=== PATIENT | male | born 1990 | race African-American/Black ===

== ENCOUNTER 2023-01-26 05:57 | Emergency (ER) | payer MEDICAID ==
[~2023-01-26] VITALS: Ht 175.3 cm; Wt 69.0 kg
[~2023-01-26 05:57] MED LIST: BO1 TP; TOPUD PO
[2023-01-26 06:01] VITALS: BP 124/86; PULSE 76; RESP 18; TEMP 98.4; O2SAT 100
== END 2023-01-26 08:15 | disposition left against medical advice (07) ==
LOC: ER 06:02
DX: Z53.21 Procedure and treatment not carried out due to patient leaving prior to being seen by health care provider (principal)

== ENCOUNTER 2023-12-09 22:15 | Emergency (ER) | payer MEDICAID ==
[~2023-12-09] VITALS: Ht 182.9 cm; Wt 75.0 kg
[2023-12-09 22:37] VITALS: BP 119/74; PULSE 80; RESP 18; TEMP 98; O2SAT 100
[2023-12-10] MEDS: FAMOTIDINE 20MG TABLET PO ONE (00:03)
[2023-12-10] MEDS: MAGNESIUM/ALUMINUM HYDROXIDE/SIMETHICONE 30ML UDC PO STA (00:03)
[2023-12-10] MEDS ORDERED: ACET-2708 MT (01:30)
== END 2023-12-10 03:21 | disposition home or self-care (01) ==
LOC: ER 22:15
DX: B34.9 Viral infection, unspecified (principal); K29.60 Other gastritis without bleeding; Z20.822 Contact with and (suspected) exposure to COVID-19
CPT/HCPCS: 99283; 87426; 87420; 87804 ×2; Z7610 ×2

== ENCOUNTER 2023-12-10 04:58 | Inpatient (IN) | payer MEDICAID ==
[~2023-12-10] VITALS: Ht 180.3 cm; Wt 66.3 kg
[~2023-12-10 04:58] MED LIST changes: +ACET-2708 MT
[2023-12-10] MEDS ORDERED: KETOROLAC 30MG/ML VIAL IV STA (06:02)
[2023-12-10] MEDS ORDERED: ONDANSETRON HCL 4MG/2ML INJ IV STA (06:02)
[2023-12-10 06:29] LABS: BASOPHILS % 1.4 % (0.0-2.0); HEMATOCRIT. 44.9 % (42.0-52.0); HEMOGLOBIN. 14.8 g/dL (14.0-18.0); LYMPHOCYTES % 40.8 % (20.0-50.0); MEAN CORPUSCULAR HEMOGLOBIN 30.6 pg (28.0-32.0); MEAN CORPUSCULAR HGB CONC 32.8 g/dL (31.0-37.0); MEAN CORPUSCULAR VOLUME 93.3 fL (80.0-94.0); MEAN PLATELET VOLUME 7.4 fl (7.4-10.4); NEUTROPHILS % 46.8 % (40.0-76.0); PLATELET 304 x1000/uL (130-400); RED BLOOD CELL COUNT 4.81 mill/uL (4.7-6.1); RED CELL DISTRIBUTION WIDTH 11.6 % (11.6-14.6); WHITE BLOOD COUNT 3.8 x1000/uL (4.5-11.0)
[2023-12-10 06:51] LABS: CHLORIDE 105 mEq/L (98-107); SODIUM 138 mEq/L (136-145)
[2023-12-10 06:52] LABS: CARBON DIOXIDE 27 mEq/L (21-32)
[2023-12-10 06:53] LABS: CALCIUM 9.7 mg/dL (8.7-10.4)
[2023-12-10 06:58] LABS: GLUCOSE 81 mg/dL (70-105); UREA NITROGEN BLOOD 9 mg/dL (9-23)
[2023-12-10 06:59] LABS: TROPONIN I HIGH SENSITIVITY < 4 ng/L (3.0-53)
[2023-12-10] MEDS ORDERED: MAGNESIUM/ALUMINUM HYDROXIDE/SIMETHICONE 30ML UDC PO PRN (08:30)
[2023-12-10] MEDS ORDERED: DOCUSATE SODIUM 100MG CAPSULE PO PRN (08:30)
[2023-12-10] MEDS ORDERED: ONDANSETRON HCL 4MG/2ML INJ IV PRN (08:30)
[2023-12-10] MEDS ORDERED: ACETAMINOPHEN 325MG TABLET PO PRN ×2 (08:30)
[2023-12-10] MEDS ORDERED: GUAIFENESIN 200MG/10ML SUGAR FREE UDC PO PRN (08:30)
[2023-12-10] MEDS ORDERED: IPRATROPIUM/ALBUTEROL 0.5-3(2.5)MG/3ML NEB HHN PRN (08:30)
[2023-12-10] MEDS ORDERED: CLONIDINE 0.1MG TABLET PO PRN (08:30)
[2023-12-10] MEDS ORDERED: IBUPROFEN 600MG TABLET PO PRN (08:45)
[2023-12-10] MEDS: ONDANSETRON HCL 4MG/2ML INJ IV NR (08:48)
[2023-12-10] MEDS: KETOROLAC 30MG/ML VIAL IV NR (08:49)
[2023-12-10] MEDS: SODIUM CHLORIDE 0.9% 1,000 ML IV ONE (08:49)
[2023-12-10 09:09] LABS: ETHANOL BLOOD < 10 mg/dL (<10)
[2023-12-10 09:10] LABS: PHOSPHORUS 4.1 mg/dL (2.5-4.9)
[2023-12-10] MEDS: FAMOTIDINE 20MG TABLET PO SCH (10:13)
[2023-12-10 15:48] LABS: CREATINE KINASE MB FRACTION 1.6 ng/mL (0.5-3.6)
[2023-12-10 16:00] VITALS: BP 113/72; PULSE 45; RESP 18; TEMP 97.9
[2023-12-10 16:21] VITALS: BP 113/72; PULSE 45; RESP 18; TEMP 97.9
[2023-12-10 17:24] LABS: CLARITY URINE CLEAR (CLEAR); COLOR URINE DARK YELLOW (YELLOW); GLUCOSE URINE NEGATIVE (NEGATIVE); KETONES URINE NEGATIVE (NEGATIVE); LEUKOCYTE ESTERASE URINE TRACE (NEGATIVE); NITRITE URINE NEGATIVE (NEGATIVE); OCCULT BLOOD URINE NEGATIVE (NEGATIVE); PROTEIN URINE NEGATIVE (NEGATIVE); SPECIFIC GRAVITY URINE 1.034 (1.005-1.030)
[2023-12-10 17:38] LABS: *AMPHETAMINES SCREEN URINE PRESUMPTIVE POSITIVE (NEGATIVE); *BARBITURATES SCREEN URINE NEGATIVE (NEGATIVE); *BENZODIAZEPINES SCREEN URINE NEGATIVE (NEGATIVE); *COCAINE SCREEN URINE NEGATIVE (NEGATIVE); CANNABINOID URINE SCREEN PRESUMPTIVE POSITIVE (NEGATIVE); ECSTASY MDMA SCREEN URINE NEGATIVE (NEGATIVE); METHADONE URINE SCREEN NEGATIVE (NEGATIVE); OPIATES URINE SCREEN NEGATIVE (NEGATIVE); PHENCYCLIDINE URINE SCREEN PRESUMTIVE POSITIVE (NEGATIVE)
[2023-12-10 17:50] LABS: BACTERIA URINE 1+; RBC URINE NONE SEEN /hpf (0-2); SQUAMOUS EPITHELIAL CELL URINE RARE /lpf (RARE/1+); WBC URINE 0-2 /hpf (0-2)
[2023-12-10 20:00] VITALS: BP 109/60; PULSE 63; RESP 20; TEMP 97.9
[2023-12-11] VITALS: BP 102/79; PULSE 59; RESP 20; TEMP 97.7
[2023-12-11 04:00] VITALS: BP 89/56; PULSE 45; RESP 20; TEMP 97.5
[2023-12-11 07:21] LABS: BASOPHILS % 1.5 % (0.0-2.0); EOSINOPHILS % 5.9 % (0.0-5.0); HEMATOCRIT. 40.8 % (42.0-52.0); HEMOGLOBIN. 13.5 g/dL (14.0-18.0); LYMPHOCYTES % 47.2 % (20.0-50.0); MEAN CORPUSCULAR HEMOGLOBIN 30.9 pg (28.0-32.0); MEAN CORPUSCULAR HGB CONC 33.1 g/dL (31.0-37.0); MEAN CORPUSCULAR VOLUME 93.3 fL (80.0-94.0); MEAN PLATELET VOLUME 7.8 fl (7.4-10.4); MONOCYTES % 9.2 % (2.0-8.0); NEUTROPHILS % 36.2 % (40.0-76.0); PLATELET 280 x1000/uL (130-400); RED BLOOD CELL COUNT 4.37 mill/uL (4.7-6.1); RED CELL DISTRIBUTION WIDTH 11.9 % (11.6-14.6); WHITE BLOOD COUNT 2.9 x1000/uL (4.5-11.0)
[2023-12-11 07:39] LABS: T4 FREE 1.06 ng/dL (0.89-1.76); THYROID STIMULATING HORMONE 0.73 uIU/mL (0.55-4.78)
[2023-12-11 08:00] VITALS: BP 102/63; PULSE 52; RESP 18; TEMP 97.2
[2023-12-11 11:41] LABS: CREATINE KINASE MB FRACTION 1.5 ng/mL (0.5-3.6)
[2023-12-11 12:00] VITALS: BP 99/50; PULSE 60; RESP 18; TEMP 97.5
[2023-12-11] MEDS: LACTATED RINGERS 1,000 ML IV SCH (13:30)
[2023-12-11 16:00] VITALS: BP 100/50; PULSE 60; RESP 18; TEMP 97.6
[2023-12-11 18:34] LABS: HEMATOCRIT 40.7 % (42.0-52.0); HEMOGLOBIN 13.6 g/dL (14.0-18.0); MEAN CORPUSCULAR HEMOGLOBIN 31.2 pg (28.0-32.0); MEAN CORPUSCULAR HGB CONC 33.5 g/dL (31.0-37.0); MEAN CORPUSCULAR VOLUME 93.1 fL (80.0-94.0); PLATELET 293 x1000/uL (130-400); RED BLOOD CELL COUNT 4.37 mill/uL (4.7-6.1); RED CELL DISTRIBUTION WIDTH 11.9 % (11.6-14.6); WHITE BLOOD COUNT 4.2 x1000/uL (4.5-11.0)
[2023-12-11 18:44] LABS: CHLORIDE 106 mEq/L (98-107); POTASSIUM 4.1 mEq/L (3.5-5.1); SODIUM 138 mEq/L (136-145)
[2023-12-11 18:45] LABS: CARBON DIOXIDE 28 mEq/L (21-32)
[2023-12-11 18:50] LABS: CREATININE 1.2 mg/dL (0.6-1.3); GLUCOSE 83 mg/dL (70-105); UREA NITROGEN BLOOD 12 mg/dL (9-23)
[2023-12-11 20:00] VITALS: BP 120/64; PULSE 61; RESP 18; TEMP 97.8
[2023-12-12] VITALS: BP 98/46; PULSE 83; RESP 18; TEMP 97.3
[2023-12-12 04:00] VITALS: BP 123/62; PULSE 69; RESP 18; TEMP 97.5
[2023-12-12 08:00] VITALS: BP 122/63; PULSE 53; RESP 16; TEMP 96.3
[2023-12-12 12:00] VITALS: BP 107/55; PULSE 53; RESP 14; TEMP 97.3
[2023-12-12 12:25] VITALS: BP 117/48; PULSE 58; RESP 20; TEMP 96.9
[2023-12-12 14:48] VITALS: BP 110/55; PULSE 56; TEMP 97.5; O2SAT 98
== END 2023-12-12 15:24 | disposition home or self-care (01) | DRG 207 ==
LOC: ER 04:58 → 5WST 07:55 → 7EST 15:19
PROVIDERS: ADMIT Internal Medicine; ATTEND Internal Medicine
DX: I51.4 Myocarditis, unspecified (principal); I26.99 Other pulmonary embolism without acute cor pulmonale; I31.9 Disease of pericardium, unspecified; D70.9 Neutropenia, unspecified; Z59.00 Homelessness unspecified; F15.20 Other stimulant dependence, uncomplicated; F12.20 Cannabis dependence, uncomplicated; G40.909 Epilepsy, unspecified, not intractable, without status epilepticus; I51.7 Cardiomegaly; Z82.49 Family history of ischemic heart disease and other diseases of the circulatory system; Z83.3 Family history of diabetes mellitus
CPT/HCPCS: 36415; 71045; 80048; 80061; 80305; 80320; 81003; 82550; 82553; 83036; 83735; 83880; 84100; 84439; 84443; 84484; 85025; 85027; 85379; 85651; 93005; 99285; J1885; J2405; J7030; J7120; G0480

== ENCOUNTER 2023-12-15 20:19 | Emergency (ER) | payer MEDICAID ==
[~2023-12-15] VITALS: Ht 177.8 cm; Wt 71.0 kg
[2023-12-15 20:32] VITALS: BP 102/61; PULSE 89; RESP 12; TEMP 98.7; O2SAT 99
[2023-12-15] MEDS ORDERED: HALOPERIDOL LACTATE 5MG/ML VIAL IM ONE (20:45)
[2023-12-15 22:53] LABS: EOSINOPHILS % 2.6 % (0.0-5.0); HEMATOCRIT. 44.8 % (42.0-52.0); HEMOGLOBIN. 14.7 g/dL (14.0-18.0); LYMPHOCYTES % 32.8 % (20.0-50.0); MEAN CORPUSCULAR HEMOGLOBIN 30.8 pg (28.0-32.0); MEAN CORPUSCULAR HGB CONC 32.8 g/dL (31.0-37.0); MEAN CORPUSCULAR VOLUME 93.7 fL (80.0-94.0); MEAN PLATELET VOLUME 7.7 fl (7.4-10.4); MONOCYTES % 7.5 % (2.0-8.0); NEUTROPHILS % 56.1 % (40.0-76.0); PLATELET 332 x1000/uL (130-400); RED BLOOD CELL COUNT 4.78 mill/uL (4.7-6.1); RED CELL DISTRIBUTION WIDTH 11.7 % (11.6-14.6); WHITE BLOOD COUNT 5.1 x1000/uL (4.5-11.0)
[2023-12-15 23:03] LABS: CHLORIDE 101 mEq/L (98-107); SODIUM 138 mEq/L (136-145)
[2023-12-15 23:04] LABS: CALCIUM 10.2 mg/dL (8.7-10.4); CARBON DIOXIDE 25 mEq/L (21-32)
[2023-12-15 23:09] LABS: CREATININE 1.4 mg/dL (0.6-1.3); GLUCOSE 87 mg/dL (70-105); UREA NITROGEN BLOOD 17 mg/dL (9-23)
[2023-12-15 23:11] LABS: ALANINE AMINOTRANSFERASE 22 IU/L (10-49); ALBUMIN 4.9 g/dL (3.2-4.8); ASPARTATE AMINOTRANSFERASE 31 IU/L (<34); BILIRUBIN TOTAL 5.6 mg/dL (0.1-1.0); PROTEIN TOTAL 8.1 g/dL (6.0-8.3)
[2023-12-15] MEDS: HALOPERIDOL LACTATE 5MG/ML VIAL IM NR (23:45)
== END 2023-12-15 21:54 | disposition home or self-care (01) ==
LOC: ER 20:19
DX: R10.9 Unspecified abdominal pain (principal)
CPT/HCPCS: 99283; 80053; 83690; 85025; 36415; 96372; J1630

== ENCOUNTER 2024-04-13 10:31 | Emergency (ER) | payer OTHER, MEDICAID ==
[~2024-04-13] VITALS: Ht 180.3 cm; Wt 73.0 kg
[2024-04-13 10:38] VITALS: O2SAT 98
[2024-04-13] MEDS: IBUPROFEN 600MG TABLET PO ONE (13:12)
[2024-04-13 13:14] VITALS: BP 118/77; PULSE 80; RESP 16; TEMP 36.66960; O2SAT 98
== END 2024-04-13 13:26 | disposition home or self-care (01) ==
LOC: ER 10:31
DX: S62.302A Unspecified fracture of third metacarpal bone, right hand, initial encounter for closed fracture (principal); W21.03XA Struck by baseball, initial encounter; Y93.89 Activity, other specified; Y92.89 Other specified places as the place of occurrence of the external cause; Y99.8 Other external cause status
CPT/HCPCS: 29125; 73130; 99283